=== PATIENT | female | born 1985 | race Caucasian/White ===

== ENCOUNTER 2017-03-17 21:31 | Emergency (ER) | payer MEDICAID ==
[2017-03-18 01:16] VITALS: BP 119/74
== END 2017-03-18 01:16 | disposition home or self-care (01) ==
LOC: ED 21:31
DX: R51 Headache (principal); I10 Essential (primary) hypertension
CPT/HCPCS: J2060; J2270; J2405; J3490

== ENCOUNTER 2018-10-04 14:20 | Emergency (ER) | payer MEDICAID ==
[~2018-10-04] VITALS: Ht 165.1 cm; Wt 85.7 kg
[2018-10-04 14:29] VITALS: Ht 165.1 cm; Wt 85.7 kg
[2018-10-04 16:07] LABS: CALCIUM 8.9 mg/dL (8.5-10.1); CARBON DIOXIDE 29.4 mmol/L (21-32); CHLORIDE SERUM 103 mmol/L (98-107); CREATININE SERUM 0.8 mg/dL (0.6-1.0); GFR1 > 60 mL/min; GLUCOSE SERUM 97 mg/dL (74-106); SODIUM SERUM 139 mmol/L (136-145)
[2018-10-04 16:11] LABS: BASOPHIL % 0.2 % (0-2); PLATELET COUNT 255 x10^3mcL (130-400); RED CELL DISTRIBUTION WIDTH 12.8 % (11.5-14.5)
[2018-10-04 16:13] LABS: ALBUMIN 3.8 g/dL (3.4-5.0); ALKALINE PHOSPHATASE 79 U/L (46-116); ALT/SGPT 26 U/L (14-59); AST/SGOT 11 U/L (15-37); BILIRUBIN TOTAL 0.26 mg/dL (0.20-1.00); TOTAL PROTEIN, SERUM 7.6 g/dL (6.4-8.2)
[2018-10-04 17:19] VITALS: BP 135/82
== END 2018-10-04 17:19 | disposition home or self-care (01) ==
LOC: ED 14:20
PROVIDERS: Emergency Medicine
DX: R07.89 Other chest pain (principal); G43.909 Migraine, unspecified, not intractable, without status migrainosus
CPT/HCPCS: 36415; 85378

== ENCOUNTER 2019-05-27 12:27 | Emergency (ER) | payer MEDICAID ==
[~2019-05-27] VITALS: Ht 165.1 cm; Wt 86.6 kg
[2019-05-27 12:48] VITALS: Ht 165.1 cm; Wt 86.6 kg
[2019-05-27 15:53] VITALS: BP 126/89
== END 2019-05-27 15:53 | disposition home or self-care (01) ==
LOC: ED 12:27
DX: G51.0 Bell's palsy (principal); G43.909 Migraine, unspecified, not intractable, without status migrainosus
CPT/HCPCS: J7512

== ENCOUNTER 2020-02-22 17:34 | Emergency (ER) | payer MEDICAID, SELFPAY ==
[~2020-02-22] VITALS: Ht 165.1 cm; Wt 84.8 kg
[2020-02-22 17:47] VITALS: Ht 165.1 cm; Wt 84.8 kg
[2020-02-22 19:37] LABS: BASOPHIL % 0.2 % (0-2); PLATELET COUNT 204 x10^3mcL (130-400); RED CELL DISTRIBUTION WIDTH 12.6 % (11.5-14.5)
[2020-02-22 19:54] LABS: CALCIUM 9.1 mg/dL (8.5-10.1); CARBON DIOXIDE 24.8 mmol/L (21-32); CHLORIDE SERUM 101 mmol/L (98-107); CREATININE SERUM 0.9 mg/dL (0.6-1.0); GFR1 > 60 mL/min; GLUCOSE SERUM 120 mg/dL (74-106); POTASSIUM SERUM 3.4 mmol/L (3.5-5.1); SODIUM SERUM 135 mmol/L (136-145)
[2020-02-22 19:59] LABS: ALBUMIN 3.9 g/dL (3.4-5.0); ALKALINE PHOSPHATASE 74 U/L (46-116); ALT/SGPT 31 U/L (14-59); AST/SGOT 9 U/L (15-37); BILIRUBIN TOTAL 0.32 mg/dL (0.20-1.00); TOTAL PROTEIN, SERUM 7.8 g/dL (6.4-8.2)
[2020-02-22 20:31] LABS: microscopic required? YES; urine erythrocyte 1+ (NEGATIVE)
[2020-02-23 00:07] VITALS: BP 116/66
== END 2020-02-23 00:07 | disposition short-term general hospital (02) ==
LOC: ED 17:34
PROVIDERS: Student in an Organized Health Care Education/Training Program
DX: U07.1 COVID-19 (principal); N39.0 Urinary tract infection, site not specified
CPT/HCPCS: J0696; J7030; J7060; Q0092; Q9967; U0003-CS